=== PATIENT | male | born 1995 ===

== ENCOUNTER 2021-09-24 21:27 | Emergency (ER) | payer SELFPAY ==
[2021-09-24 22:24] VITALS: BP 128/73
--- NOTE | 2021-09-24 23:08 | Emergency Department Report ---
- General Chief Complaint: Wound/Laceration Stated Complaint: CUT ON EYE Source: patient Mode of arrival: Ambulatory Limitations: No Limitations - History of Present Illness Initial Comments: Patient is a 26-year-old male with no past medical history presents to the ED with complaint of acute onset persistent painful open laceration wound on right suprapubic area after he was accidentally elbowed on the face during a soccer practice 24 hours ago. Patient states that he is up-to-date with his tetanus vaccination having received in [place] about a [place] ago. Patient denies loss of consciousness, dizziness, syncope, chest pain, shortness of breath, neck injury, headache, change in vision, nausea and vomiting. -: Sudden, hour(s) (24) Location: scalp (frontal scalp) 1 - Right supraorbital laceration wound Place: outdoors Patient Tetanus UTD: Yes Context: accidental, other (elbowed during soccer practice) Associated Symptoms: pain. denies: loss of feeling/numbness, suspect foreign body present, weakness followed by dizziness, nausea/vomiting, fever - Related Data Previous Rx's Medication Instructions Recorded Last Taken Type Ibuprofen [Motrin] 800 mg PO Q8HR PRN #30 tablet 09/24/21 Unknown Rx cephALEXin [Keflex] 500 mg PO Q6HR #40 capsule 09/24/21 Unknown Rx ED Review of Systems ROS: Stated complaint: CUT ON EYE Other details as noted in HPI Constitutional: denies: chills, fever Eyes: denies: eye pain, eye discharge, vision change ENT: other (Right supraorbital bleeding laceration). denies: ear pain, throat pain Respiratory: denies: cough, shortness of breath, wheezing Cardiovascular: denies: chest pain, palpitations Endocrine: no symptoms reported Gastrointestinal: denies: abdominal pain, nausea, diarrhea Genitourinary: denies: urgency, dysuria Musculoskeletal: denies: back pain, joint swelling, arthralgia Skin: other (Right supraorbital bleeding laceration). denies: rash, lesions Neurological: denies: headache, weakness, paresthesias Psychiatric: denies: anxiety, depression Hematological/Lymphatic: denies: easy bleeding, easy bruising ED Past Medical Hx - Past Medical History Previous Medical History?: No - Surgical History Past Surgical History?: No - Medications Home Medications: Home Medications Medication Instructions Recorded Confirmed Last Taken Type Ibuprofen [Motrin] 800 mg PO Q8HR PRN #30 tablet 09/24/21 Unknown Rx cephALEXin [Keflex] 500 mg PO Q6HR #40 capsule 09/24/21 Unknown Rx ED Physical Exam - General Limitations: No Limitations General appearance: alert, in no apparent distress - Head Head exam: Present: other (Right supraorbital bleeding 2 cm laceration wound) - Eye Eye exam: Present: normal appearance, PERRL, EOMI - ENT ENT exam: Present: normal exam, normal orophraynx, mucous membranes moist, TM's normal bilaterally, normal external ear exam - Neck Neck exam: Present: normal inspection, full ROM - Respiratory Respiratory exam: Present: normal lung sounds bilaterally. Absent: respiratory distress, wheezes, rhonchi, stridor, chest wall tenderness, accessory muscle use, decreased breath sounds - Cardiovascular Cardiovascular Exam: Present: regular rate, normal rhythm, normal heart sounds. Absent: systolic murmur, diastolic murmur, rubs, gallop - GI/Abdominal GI/Abdominal exam: Present: soft, normal bowel sounds. Absent: tenderness, guarding, hyperactive bowel sounds, hypoactive bowel sounds, organomegaly - Extremities Exam Extremities exam: Present: normal inspection, full ROM, normal capillary refill - Back Exam Back exam: Present: normal inspection, full ROM. Absent: tenderness, CVA tenderness (R), CVA tenderness (L), muscle spasm, paraspinal tenderness, vertebral tenderness, rash noted - Neurological Exam Neurological exam: Present: alert, oriented X3, CN II-XII intact, normal gait, reflexes normal - Psychiatric Psychiatric exam: Present: normal affect, normal mood - Skin Skin exam: Present: warm, dry, intact, normal color, other (Bleeding right supraorbital 2 cm laceration wound). Absent: rash ED Course Vital Signs 09/24/21 22:21 Temperature 97.9 F Pulse Rate 70 Respiratory 18 Rate Blood Pressure 128/73 [Right] O2 Sat by Pulse 96 Oximetry - Laceration /Wound Repair Right Face Wound Location: face (Right supraorbital bleeding laceration wound) Wound Length (cm): 2 Wound's Depth, Shape: superficial, linear Wound Explored: contaminated Irrigated w/ Saline (ccs): 200 Betadine Prep?: No Wound Debrided: minimal Wound Repaired With: Steri-strips Number of Sutures: 7 Layer Closure?: No Sterile Dressing Applied?: No Progress: The wound was cleaned extensively with normal saline. The wound was approximated and partially closed with the Steri-Strips and covered with a Band- Aid. Patient tolerated the procedure well. Sutures were not used because the wound has been open for over 24 hours. ED Medical Decision Making - Medical Decision Making This is a 26-year-old male with no past medical history presents to the ED with complaint of acute onset persistent painful open laceration wound on right suprapubic area after he was accidentally elbowed on the face during a soccer practice 24 hours ago. Patient states that he is up-to-date with his tetanus vaccination having received [place] about a [place] ago. In the ED, patient is alert and oriented x3 and is not in any distress. Patient is hemodynamically stable. Patient was treated for pain in the ED and also given initial oral antibiotics in the ED. The wound was cleaned extensively normal saline and approximated and partially closed with a Steri-Strips. Patient tolerated the procedure well. The wound has been open for 24 hours so sutures were not placed. Patient was discharged home on pain medication and oral antibiotics and advised to follow-up with his primary care physician in 7 to 10 days for reevaluation or return to the ED immediately if symptoms get worse. - Differential Diagnosis Facial laceration; scalp contusion; Critical care attestation.: If time is entered above; I have spent that time in minutes in the direct care of this critically ill patient, excluding procedure time. ED Disposition Clinical Impression: Contusion of scalp Qualifiers: Encounter type: initial encounter Qualified Code(s): S00.03XA - Contusion of scalp, initial encounter Laceration of scalp Qualifiers: Encounter type: initial encounter Qualified Code(s): S01.01XA - Laceration without foreign body of scalp, initial encounter Disposition: HOME / SELF CARE / HOMELESS Is pt being admited?: No Does the pt Need Aspirin: No Condition: Stable Instructions: Wound Infection, [id number], Laceration Care, Adult, [id number], Nonsutured Laceration Care, Facial or Scalp Contusion, [id number] Additional Instructions: La herida abierta se cristóbal parcialmente con las Steri-Strips. Existe la posibilidad de que la herida est parcialmente infectada en huseyin momento. Por lo tanto, tome la medicacin con alimentos, anna muchos lquidos y peter un seguimiento con dean mdico de atencin primaria en 7 a 10 elias para damon reevaluacin. Regrese al servicio de urgencias de inmediato si los sntomas empeoran. Prescriptions: cephALEXin [Keflex] 500 mg PO Q6HR #40 capsule Ibuprofen [Motrin] 800 mg PO Q8HR PRN #30 tablet PRN Reason: Pain , Severe (7-10) Referrals: [facility] [Provider Group] - 7-10 days Time of Disposition: 23:12 Print Language: [email or web address]
[2021-09-24] MEDS ORDERED: cephALEXin 500 MG CAP PO ONE (23:43)
[2021-09-24] MEDS ORDERED: IBUPROFEN 600 MG TAB PO ONE (23:43)
== END 2021-09-25 00:19 | disposition home or self-care (01) ==
LOC: ED 21:27
DX: S01.01XA Laceration without foreign body of scalp, initial encounter (principal); S00.03XA Contusion of scalp, initial encounter; W51.XXXA Accidental striking against or bumped into by another person, initial encounter; Y93.66 Activity, soccer; Y92.322 Soccer field as the place of occurrence of the external cause; Y99.8 Other external cause status
CPT/HCPCS: 99282